=== PATIENT | male | born 1940 | race Caucasian/White ===

== ENCOUNTER 2016-12-15 06:00 | Emergency (ER) | payer MEDICARE ==
[2016-12-15 07:08] LABS: Eosinophils % (Auto) 4.7 % (0.0-4.3); Hematocrit 46.8 % (35.5-45.6); Hemoglobin 15.1 gm/dl (11.8-15.2); Mean Corpuscular HGB Conc 32 % (32-34); Mean Corpuscular Hemoglobin 30 pg (28-32); Mean Corpuscular Volume 93 fl (84-94); Platelet Count 257 K/mm3 (140-440); Red Blood Count 5.06 M/mm3 (3.65-5.03); Red Cell Distribution Width 13.5 % (13.2-15.2); White Blood Count 7.1 K/mm3 (4.5-11.0)
[2016-12-15 07:18] LABS: Anion Gap 20 mmol/L; BUN/Creatinine Ratio 25.71; Blood Urea Nitrogen 36 mg/dL (9-20); Calcium 9.4 mg/dL (8.4-10.2); Carbon Dioxide 25 mmol/L (22-30); Chloride 100.3 mmol/L (98-107); Glucose 94 mg/dL (75-100); Potassium 4.3 mmol/L (3.6-5.0); Sodium 141 mmol/L (137-145)
--- NOTE | 2016-12-15 09:22 | XRay Report ---
Chest 2 views: History: Shortness of breath. Findings: Borderline cardiomegaly. Trachea is midline. No consolidation, pneumothorax or pleural effusion. Impression: No acute cardiopulmonary findings.
--- NOTE | 2016-12-15 10:23 | Emergency Department Report ---
ED Shortness of Breath HPI - General Chief Complaint: Dyspnea/Respdistress Stated Complaint: HURRIRMA/VU/FLU LIKE SYMPTOMS Time Seen by Provider: 12/15/16 10:03 Source: patient Mode of arrival: Ambulatory Limitations: No Limitations - History of Present Illness Initial Comments: 76-year-old male back to be from [place] here with complaint of shortness of breath. Patient has a known history of CAD and presents with some shortness of breath. He intermittently has E symptoms according to his son. He denies any chest pain. He currently feels better at this time. He denies fevers chills nausea vomiting. No leg pain or shortness of breath. MD Complaint: shortness of breath -: Sudden Radiation: jaw Improves With: nothing Worsens With: nothing Known History Of: congestive heart failure Treatments Prior to Arrival: none - Related Data Home Medications Medication Instructions Recorded Confirmed Last Taken Aspirin EC [Aspirin Enteric Coated 81 mg PO QDAY 12/15/16 12/15/16 Unknown TAB] AtorvaSTATin [Lipitor] 10 mg PO QHS 12/15/16 12/15/16 Unknown Captopril 100 mg PO QDAY 12/15/16 12/15/16 Unknown Isosorbide Dinitrate 30 mg PO TID 12/15/16 12/15/16 Unknown Ticagrelor [Brilinta] 90 mg PO BID 12/15/16 12/15/16 Unknown Allergies Allergy/AdvReac Type Severity Reaction Status Date / Time No Known Allergies Allergy Unverified 12/15/16 06:24 ED Review of Systems ROS: Stated complaint: HURRIRMA/VU/FLU LIKE SYMPTOMS Other details as noted in HPI Constitutional: denies: chills, fever Eyes: denies: eye pain, eye discharge, vision change ENT: denies: ear pain, throat pain Respiratory: shortness of breath. denies: cough, wheezing Cardiovascular: denies: chest pain, palpitations Endocrine: no symptoms reported Gastrointestinal: denies: abdominal pain, nausea, diarrhea Genitourinary: denies: urgency, dysuria Musculoskeletal: denies: back pain, joint swelling, arthralgia Skin: denies: rash, lesions Neurological: denies: headache, weakness, paresthesias Psychiatric: denies: anxiety, depression Hematological/Lymphatic: denies: easy bleeding, easy bruising ED Past Medical Hx - Past Medical History Previous Medical History?: Yes Hx Heart Attack/AMI: Yes Additional medical history: cardiac stents, - Surgical History Past Surgical History?: Yes Hx Pacemaker: Yes Additional Surgical History: bypass, back surgery, laser eye surgery, tonsils, - Family History Family history: CAD/UT - Social History Smoking Status: Former Smoker - Medications Home Medications: Home Medications Medication Instructions Recorded Confirmed Last Taken Type Aspirin EC [Aspirin Enteric Coated 81 mg PO QDAY 12/15/16 12/15/16 Unknown History TAB] AtorvaSTATin [Lipitor] 10 mg PO QHS 12/15/16 12/15/16 Unknown History Captopril 100 mg PO QDAY 12/15/16 12/15/16 Unknown History Isosorbide Dinitrate 30 mg PO TID 12/15/16 12/15/16 Unknown History Ticagrelor [Brilinta] 90 mg PO BID 12/15/16 12/15/16 Unknown History ED Physical Exam - General Limitations: No Limitations General appearance: alert, in no apparent distress - Head Head exam: Present: atraumatic, normocephalic - Eye Eye exam: Present: normal appearance. Absent: scleral icterus, conjunctival injection - ENT ENT exam: Present: mucous membranes moist - Neck Neck exam: Present: normal inspection. Absent: lymphadenopathy - Respiratory Respiratory exam: Present: normal lung sounds bilaterally. Absent: respiratory distress, wheezes, rales, rhonchi - Cardiovascular Cardiovascular Exam: Present: regular rate, normal rhythm, normal heart sounds. Absent: systolic murmur, diastolic murmur, rubs, gallop - GI/Abdominal GI/Abdominal exam: Present: soft, normal bowel sounds. Absent: distended, tenderness - Rectal Rectal exam: Present: deferred - Extremities Exam Extremities exam: Present: normal inspection. Absent: pedal edema - Back Exam Back exam: Present: normal inspection - Neurological Exam Neurological exam: Present: alert, oriented X3 - Psychiatric Psychiatric exam: Present: normal affect, normal mood - Skin Skin exam: Present: warm, dry, intact, normal color. Absent: rash ED Course Vital Signs 12/15/16 12/15/16 06:20 09:35 Temperature 98.0 F 98.3 F Pulse Rate 101 H 85 Respiratory 14 Rate Blood Pressure 140/73 Blood Pressure 130/60 [Left] O2 Sat by Pulse 99 96 Oximetry ED Medical Decision Making - Lab Data Result diagrams: 12/15/16 06:31 09/10/17 06:31 Laboratory Results - last 24 hr 12/15/16 12/15/16 06:31 06:31 WBC 7.1 RBC 5.06 H Hgb 15.1 Hct 46.8 H MCV 93 MCH 30 MCHC 32 RDW 13.5 Plt Count 257 Lymph % (Auto) 24.6 [place] % (Auto) 8.4 H Eos % (Auto) 4.7 H Baso % (Auto) 1.0 Lymph # 1.7 [place] # 0.6 Eos # 0.3 Baso # 0.1 Seg Neutrophils % 61.3 Seg Neutrophils # 4.3 Sodium 141 Potassium 4.3 Chloride 100.3 Carbon Dioxide 25 Anion Gap 20 BUN 36 H Creatinine 1.4 Estimated GFR 50 BUN/Creatinine Ratio 25.71 Glucose 94 Calcium 9.4 Troponin T < 0.010 - EKG Data -: EKG Interpreted by [facility] - EKG Data 12/15/16 10:23 Sinus 90 normal axis normal intervals left atrial enlargement no ST-T wave changes - Radiology Data Radiology results: report reviewed, image reviewed - Medical Decision Making 76-year-old male with a known history of CAD and stents last placed in June here with complaints of shortness of breath. Patient states that he feels better currently. He felt anxious earlier today. Here his EKG does not show any evidence of ischemia. His chest x-ray is clear. He has a normal troponin. Plan the cycle his troponin one time and if negative plan to discharge the patient. Discussed this with his son. Offered an economic history teacher and the patient was comfortable with his son interpreting. 2 negative troponins. Chest x-ray clear. Plan to discharge patient home. Portions of this chart were dictated with dictation software. There may be dictation errors contained within this note. Critical care attestation.: If time is entered above; I have spent that time in minutes in the direct care of this critically ill patient, excluding procedure time. ED Disposition Clinical Impression: Shortness of breath Disposition: DC-01 TO HOME OR SELFCARE Is pt being admited?: No Condition: Stable Instructions: Dyspnea (ED) Additional Instructions: Follow-up with your primary care doctor after returning from [place]. Referrals: PRIMARY CARE, [Primary Care Provider] - 3-5 Days
[2016-12-15 12:33] VITALS: BP 161/77
== END 2016-12-15 13:03 | disposition home or self-care (01) ==
LOC: ED 06:00
DX: R06.02 Shortness of breath (principal); I25.2 Old myocardial infarction; Z87.891 Personal history of nicotine dependence
CPT/HCPCS: 36415; 71020; 80048; 84484; 85025; 93005; 93010